=== PATIENT | female | born 1990 | race American Indian/Alaskan Native ===

== ENCOUNTER 2019-04-20 16:52 | Emergency (ER) | payer OTHER ==
[2019-04-20 16:58] VITALS: BP 146/88
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
[2019-04-20 18:06] LABS: Bacteria,Urine 1+ /HPF (Negative); Bilirubin,Urine NEG (Negative); Blood,Urine LG (Negative); Color,Urine Yellow (Yellow); Mucus,Urine 1+ /HPF; Protein,Urine <15 mg/dL mg/dL (Negative); Urobilinogen,Urine < 2.0 mg/dL (<2.0)
[2019-04-20 18:10] LABS: HCG Qualitative,Urine Negative (Negative)
== END 2019-04-20 18:49 | disposition left against medical advice (07) ==
LOC: ED 16:52
DX: R10.2 Pelvic and perineal pain (principal); I10 Essential (primary) hypertension; F17.200 Nicotine dependence, unspecified, uncomplicated; F12.10 Cannabis abuse, uncomplicated; V87.7XXA Person injured in collision between other specified motor vehicles (traffic), initial encounter; Y93.89 Activity, other specified; Y92.488 Other paved roadways as the place of occurrence of the external cause; Y99.8 Other external cause status
CPT/HCPCS: 81001; 81025; 99283

== ENCOUNTER 2019-04-22 17:44 | Emergency (ER) | payer OTHER ==
[2019-04-22 18:14] VITALS: BP 135/91
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
[2019-04-22] MEDS ORDERED: IBUPROFEN PO ONE (20:15)
[2019-04-22] MEDS ORDERED: PERCOCET 5/325 PO ONE (20:15)
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
== END 2019-04-22 20:43 | disposition home or self-care (01) ==
LOC: ED 17:44
DX: M54.16 Radiculopathy, lumbar region (principal); I10 Essential (primary) hypertension; F17.200 Nicotine dependence, unspecified, uncomplicated; F12.10 Cannabis abuse, uncomplicated; V89.2XXA Person injured in unspecified motor-vehicle accident, traffic, initial encounter; Y93.89 Activity, other specified; Y92.89 Other specified places as the place of occurrence of the external cause; Y99.8 Other external cause status
CPT/HCPCS: 99282